=== PATIENT | female | born 1975 | race Caucasian/White ===

== ENCOUNTER 2017-03-02 09:25 | Emergency (ER) | payer MEDICAID ==
--- NOTE | 2017-03-02 09:32 | ED Physician Chart ---
Chief Complaint/HPI - Patient Information Date Seen:: 03/02/17 Time Seen:: 09:26 Chief Complaint:: Stiffness in R wrist for about one week. History of Present Illness:: c/o gradual onset of stiffness at R wrist and R middle finger for about one week. No known injury. No weakness or numbness. Pt has mild pain with movement of her R wrist. Pt states that she has done a lot of typing prior to onset of the symptom described above. Allergies:: NKA Vitals:: see Nurse Note. Historian:: Patient Family MD/PCP:: Unknown LMP:: Hysterectomy about 3 years ago. Review:: Nurse's Note Reviewed Review of Systems - Review of Systems General/Constitutional: No fever, No chills, No weight loss, No weakness, No diaphoresis, No edema, No loss of appetite Skin: No skin lesions, No rash, No bruising Head: No headache, No light-headedness Eyes: No loss of vision, No pain, No diplopia ENT: No earache, No nasal drainage, No sore throat, No tinnitus Neck: No neck pain, No swelling, No thyromegaly, No stiffness, No mass noted Cardio Vascular: No chest pain Pulmonary: No SOB, No cough, No sputum, No wheezing GI: No nausea, No vomiting, No diarrhea, No pain, No melena, No hematochezia, No constipation, No hematemesis Musculoskeletal: Bone or joint pain (in R wrist and hand, see HPI.) Endocrine: No polyuria, No polydipsia Psychiatric: No prior psych history Hematopoietic: No bruising, No lymphadenopathy Allergic/Immuno: No urticaria, No angioedema Neurological: No syncope, No focal symptoms, No weakness, No paresthesia, No headache, No seizure, No dizziness, No confusion, No vertigo Past Medical History - Past Medical History Past Medical History: HTN, Other (Chronic anemia.) Family History: HTN (father) Social History: Non Smoker, No Alcohol, No Drug Use, , Lives Alone, Employed, Other Employment:: court clerk. Surgical History: Hysterectomy (), (in ) Psychiatricy History: None Medication: Reviewed Family Medical History - Family Member Father Ethnicity: Living Status: Still Living Hx Family Hypertension: Yes Physical Exam - Physical Examination General/Constitutional: Awake, Well-developed, well-nourished, Alert, No distress, GCS 15, Non-toxic appearing, Ambulatory Other Gen/Cons comments:: Breathes comfortably, speaks clearly, and ambulates without difficulty. Head: Atraumatic Eyes: Lids, conjuctiva normal, PERRL, EOMI Skin: Nl inspection, No rash, No skin lesions, No ecchymosis, Well hydrated, No lymphadenopathy ENMT: External ears, nose nl, Nasal exam nl, Lips, teeth, gums nl, Oropharynx nl Neck: Nontender, Full ROM w/o pain, No nuchal rigidity, No mass, No stridor Respiratory: Nl effort/Exclusion, Clear to Auscultation, No Wheeze/Rhonchi/Rales Cardio Vascular: RRR, No murmur, gallop, rubs GI: No tenderness/rebounding/guarding, No organomegaly, No hernia, Normal BS's, Nondistended, No mass/bruits, No McBurney tenderness Other GI comments:: obese but soft. Other Extremities comments:: RUE: R wrist and hand with FROM of all joints. There is mild tenderness at mid dorsum of R wrist. No erythema, gross deformity, crepitus, open wound, or unusual warmth. No definite swelling. The remaining exam of R hand and digits is unremarkable. No detectable motor/sensory/vascular deficit. Good distal capillary refill. Neuro/Psych: Alert/oriented (oriented x 3), Judgement/insight normal, Mood normal, Normal gait, No focal deficits Labs/Radiology/EKG Results - Radiology Results Results: R wrist X-ray: Based on my interpretation, no acute fx or subluxation. Official report is pending. ED Septic Shock - . Is Septic Shock (SBP<90, OR Lactate>4 mmol\L) present?: No Reassessment (Disposition) - Reassessment Reassessment:: 1035 Pt feels much better. BP improves after pain has been controlled. R wrist X -ray just became available. Radiological findings have been reviewed with pt. Pt requests to go home now. Aftercare instructions have been given. Reassessment Condition:: Improved - Diagnosis Diagnosis:: R wrist pain due to overuse. Consider early DJD vs sprain. Stable and improved. - Aftercare/Follow up Instructions Aftercare/Follow-Up Instructions:: Refer to Discharge Instructions Notes:: Wear R wrist splint as directed. No heavy lifting. Limit use of R wrist. May take Tylenol 500 mg tab one tab po q4-6h prn pain. F/U with Dr. Rivas or PCP of pt's choice in one day for BP recheck and further evaluation. Return to ER immediately if condition worsens or if any further questions/problems. Medication Prescribed:: None - Patient Disposition Discharge/Transfer:: Home Time:: 10:45 Condition at Disposition:: Stable, Improved
--- NOTE | 2017-03-02 10:52 | Diagnostic Imaging Report ---
Right wrist (3 views) HISTORY: Pain No acute bony abnormalities. No fractures. Joint spaces appear normal. IMPRESSION: No acute abnormalities. In the presence of recent trauma and persistent symptoms, a repeat radiograph in 5-7 days may be helpful for detection of a subtle or occult fracture.
== END 2017-03-02 10:50 | disposition short-term general hospital (02) ==
LOC: ER 09:25
DX: M25.531 Pain in right wrist (principal); I10 Essential (primary) hypertension; D64.9 Anemia, unspecified; Z90.710 Acquired absence of both cervix and uterus
CPT/HCPCS: 73110-TC-RT; Z7502